=== PATIENT | female | born 1985 | race Hispanic/Latino ===

== ENCOUNTER 2022-04-05 22:09 | Emergency (ER) | payer BC, MEDICAID, OTHER ==
[~2022-04-05] VITALS: Ht 160 cm; Wt 85.7 kg
[~2022-04-05 22:09] MED LIST: PREN1TAB26 PO
[2022-04-05 22:37] LABS: BASOPHILS % (AUTO) 0.3 % (0.0-5.0); EOSINOPHILS % (AUTO) 0.4 % (0.0-8.0); HEMATOCRIT 39.2 % (36-48); LYMPHOCYTES % (AUTO) 19.4 % (21.0-51.0); MEAN CORPUSCULAR HEMOGLOBIN 30.7 pg (27.0-33.0); MEAN CORPUSCULAR HGB CONC 33.9 g/dL (32.0-36.0); MEAN CORPUSCULAR VOLUME 90.5 fL (79-99); MONOCYTES % (AUTO) 3.9 % (3.0-13.0); NEUTROPHILS % (AUTO) 75.3 % (40.0-77.0); PLATELET COUNT (AUTO) 191 K/uL (130-400); RED BLOOD CELL COUNT(AUTO) 4.33 MIL/uL (4.00-5.50); RED CELL DISTRIBUTION WIDTH 12.2 % (11.0-15.5); WHITE BLOOD COUNT (AUTO) 7.7 K/uL (4.8-10.8)
[2022-04-05] MEDS ORDERED: IBUPROFEN 200 MG TAB ONE (22:44)
[2022-04-05] MEDS ORDERED: ACETAMINOPHEN 500 MG TABLET ONE (22:44)
[2022-04-05] MEDS ORDERED: IBUPROFEN 400 MG TABLET ONE (22:44)
[2022-04-05 23:01] LABS: ALBUMIN 3.4 g/dL (3.5-5.0); CREATININE 0.8 mg/dL (0.5-1.5); TOTAL PROTEIN, SERUM 6.9 g/dL (6.0-8.3)
[2022-04-05 23:03] LABS: POTASSIUM 2.9 mmol/L (3.5-5.1)
[2022-04-05 23:07] LABS: APPEARANCE,URINE CLEAR (CLEAR); BILIRUBIN,URINE NEGATIVE (NEGATIVE); COLOR,URINE LIGHT-YELLOW (YELLOW); GLUCOSE, URINE (UA) NEGATIVE (NEGATIVE); KETONES,URINE 10 mg/dL (NEGATIVE); LEUKOCYTE ESTERASE ,URINE 25 Leu/uL (NEGATIVE); NITRATE,URINE NEGATIVE (NEGATIVE); OCCULT BLOOD,URINE NEGATIVE (NEGATIVE); PH,URINE 6.5 (5.0-8.0); PROTEIN,URINE 20 mg/dL (NEGATIVE); UROBILINOGEN,URINE 0.2 mg/dL (0.2-1.0)
[2022-04-05 23:13] LABS: HCG,QUALITATIVE URINE NEGATIVE (NEGATIVE)
[2022-04-05 23:23] LABS: BACTERIA,URINE FEW /HPF (None Seen); MUCUS,URINE RARE LPF (None Seen); RBC,URINE 0-1 /HPF (0-1); SQUAMOUS EPITHELIAL CELL,UR FEW /HPF (0-2)
[2022-04-05] MEDS ORDERED: KCL 20 MEQ ERTAB PO ONE (23:30)
[2022-04-05] MEDS ORDERED: POTASSIUM CHLORIDE 10% ELIXIR 20 MEQ/15 ML UDCUP PO ONE (23:30)
[2022-04-05] MEDS ORDERED: CEFU500T67 PO (23:59)
[2022-04-05] MEDS ORDERED: IBUP-1493 PO (23:59)
[2022-04-06 00:21] VITALS: BP 128/70
== END 2022-04-06 00:32 | disposition home or self-care (01) ==
LOC: EDH 22:09
DX: N39.0 Urinary tract infection, site not specified (principal); E87.6 Hypokalemia; Z20.822 Contact with and (suspected) exposure to COVID-19; I10 Essential (primary) hypertension; Z79.1 Long term (current) use of non-steroidal anti-inflammatories (NSAID)
CPT/HCPCS: 99283; 87635; 80053; 85025; 87077; 87088; 87186; 87880; 87804 ×2; 81001; 81025; 36415; C9803